=== PATIENT | female | born 1975 | race Caucasian/White ===

== ENCOUNTER → 2017-05-13 | Outpatient (CLI) | payer OTHER | LOC: BMCIMAGING 12:49 | PROVIDERS: ATTEND Nurse Practitioner Adult Health | DX: N83.291 Other ovarian cyst, right side (principal); D25.1 Intramural leiomyoma of uterus ==

== ENCOUNTER → 2017-11-18 | Outpatient (CLI) | payer OTHER | LOC: BMCIMAGING 14:35 | PROVIDERS: ATTEND Obstetrics & Gynecology | DX: N83.291 Other ovarian cyst, right side (principal); D25.9 Leiomyoma of uterus, unspecified ==

== ENCOUNTER → 2018-10-08 | Outpatient (CLI) | payer OTHER | LOC: BMCIMAGING 12:53 | PROVIDERS: ATTEND Obstetrics & Gynecology | DX: N83.291 Other ovarian cyst, right side (principal); D25.9 Leiomyoma of uterus, unspecified ==